=== PATIENT | male | born 1995 | race Caucasian/White ===

== ENCOUNTER 2016-09-22 11:49 | Inpatient (IN) | payer BC ==
--- NOTE | ~2016-09-22 | OP ---
Record Of Operation [facility] [address] [place]. [address] NAME: MAU NEWTON : 89 STATUS : ADM IN PAT#: [id number] AGE: 20 ADM/REG DATE : 09/22/16 MR#: [id number] REPORT SERV DATE: 09/24/16 DICTATED BY: CHELO IRBY DATE: 09/24/16 REPORT STATUS : Draft TRANSCRIBED BY: MODL DATE: 09/24/16 DATE OF PROCEDURE: 09/22/2016 PREOPERATIVE DIAGNOSIS: Left wound dehiscence. POSTOPERATIVE DIAGNOSIS: Left wound dehiscence. PROCEDURE: 1. Irrigation and debridement of the skin, subcutaneous tissue, and deep tissue of the left posterior heel (excisional debridement). 2. Wound VAC placement. ANESTHESIA: General. COMPLICATIONS: None. INDICATION FOR OPERATION: Mau Newton is a pleasant, 20-year-old male, who underwent posterior ankle arthrodesis on 08/24/2016. He suffered a wound dehiscence. This failed nonoperative treatment. Risks and benefits of surgical intervention were discussed at length with the patient and his mom. All their questions were answered and they wished to proceed. DESCRIPTION OF PROCEDURE: Mau was brought back to the operating room where general anesthesia was initiated. He was placed prone on the operative table. Care was taken to pad and protect all bony prominences and sensitive areas. Left lower extremity was prepped and draped in usual sterile fashion. The leg was elevated and a well-padded calf tourniquet was inflated. We examined the posterior heel incision. He had dehisced the distal portion of the incision overlying his lengthened Achilles tendon. We performed an excisional irrigation and debridement of the left posterior heel. This included debridement of all necrotic and devitalized tissue. We debrided back to healthy, stable, bleeding tissue. The debridement involved the Achilles tendon as well as the more anterior soft tissues. There was no hardware that was directly involved or visualized. It is a stable black eschar over the distal portion of the incision. During the debridement, deep tissue was sent for aerobic and anaerobic culture. At the conclusion of the case, we placed a wound VAC on the posterior portion of his heel. This was set to standard settings. The patient did well throughout the case. He awoke in the operating room and was transferred to recovery room in satisfactory condition. MMB/VIRI Chelo Irby MD / [id number] Record Of Operation [facility] [address] [place]. [address] NAME: MAU NEWTON : 95 STATUS : ADM IN PAT#: [id number] AGE: 20 ADM/REG DATE : 09/22/16 MR#: [id number] REPORT SERV DATE: 09/24/16 DICTATED BY: CHELO RIBY DATE: 09/24/16 REPORT STATUS : Draft TRANSCRIBED BY: VIRI DATE: 09/24/16 CC: MD Zac Adkins M.D.
--- NOTE | ~2016-09-22 | DS ---
Discharge Summary [facility] [address] [place]. [address] NAME: MAU NEWTON : 95 STATUS : DIS IN PAT#: [id number] AGE: 20 ADM/REG DATE : 09/22/16 MR#: [id number] REPORT SERV DATE: 10/06/16 DICTATED BY: CHELO IRBY DATE: 10/05/16 REPORT STATUS : Draft TRANSCRIBED BY: VIRI DATE: 10/05/16 ADMISSION DATE: 09/22/2016 DISCHARGE DATE: 09/26/2016 DISCHARGE DIAGNOSIS: Left wound dehiscence. HOSPITAL COURSE: Mau Newton is a pleasant male who suffered a wound dehiscence from the surgical incision on the posterior aspect of his heel. He underwent irrigation and debridement with placement of a wound VAC at the date of admission. Deep tissues were sent and Infectious Disease followed him throughout the course of the hospitalization. His PICC line was placed, and appropriate antibiotics were chosen. He was also followed by the medical team during the course of the hospitalization. The wound care nurses followed the patient as well. He was set up with home wound VAC with home health to change the VAC three times a week. All the patient and his family's questions were answered on the day of discharge. Followup appointments were arranged. KESHIA/VIRI Chelo Irby MD / [id number] CC: Zac Ferguson M.D.
--- NOTE | ~2016-09-22 | CN ---
Consultation Report [address] [place]. [address] NAME: MAU BERUMEN : 95 STATUS : ADM IN [facility]#: [id number] AGE: 20 ADM/REG DATE : 09/22/16 MR#: [id number] REPORT SERV DATE: 09/23/16 DICTATED BY: SERGEI SIMMONS DATE: 09/22/16 REPORT STATUS : Draft TRANSCRIBED BY: MODL DATE: 09/22/16 NEW CONSULT DATE OF CONSULTATION: REASON FOR CONSULT: Medical management. HISTORY OF PRESENT ILLNESS: This is a 20-year-old male with a history of recent left ankle surgery, status post fracture on 08/24/2016, apparently incision did not close all the way and the patient has exposed tendon and he is being admitted for surgery to do incision and clean out of ankle and placed wound VAC. The patient is an obese 20-year-old male with a history of pseudohypoparathyroidism with no other pertinent medical history. PAST MEDICAL HISTORY: 1. Morbid obesity. 2. Pseudohypoparathyroidism. PAST SURGICAL HISTORY: Surgical tubes placed in ears, tonsillectomy, adenoidectomy, removal of wisdom teeth, previous ankle surgery, right elbow surgery. SOCIAL HISTORY: Works at [employer]. No alcohol or smoking. FAMILY HISTORY: Noncontributory. HOME MEDICATIONS: 1. Aspirin 325 mg p.o. daily. 2. Caltrate 600+D tab daily. 3. Just completed a course of oral Duricef x7 days. 4. Synthroid 137 mcg p.o. daily. ALLERGIES: NO KNOWN ALLERGIES. REVIEW OF SYSTEMS: A 14-point reviewed with the patient and negative except for as previously mentioned. Currently, the patient has no shortness of breath, no chest pain, no nausea, vomiting, no abdominal pain, and good pain control. PHYSICAL EXAMINATION: VITAL SIGNS: Blood pressure 145/95, heart rate 89, respirations 18, O2 saturation 99% on room air, and temperature 99.1. GENERAL: Alert and oriented x3, no focal deficits. The patient generally cooperative. No apparent distress. Awake. NECK: No JVD. LUNGS: Clear to auscultation. Normal respiratory effort. CARDIOVASCULAR: No murmurs auscultated. Regular rhythm. Consultation Report [address] [place]. [address] NAME: MAU BERUMEN : 95 STATUS : ADM IN PAT#: [id number] AGE: 20 ADM/REG DATE : 09/22/16 MR#: [id number] REPORT SERV DATE: 09/23/16 DICTATED BY: SERGEI SIMMONS DATE: 09/22/16 REPORT STATUS : Draft TRANSCRIBED BY: VIRI DATE: 09/22/16 ABDOMEN: Soft, nontender. Active bowel sounds. EXTREMITIES: No edema. Left ankle with wrap dressing clean, dry, and intact. LABS: Sodium 141, potassium 4.5, chloride 104, CO2 of 29, BUN 12, creatinine 0.96, glucose 74. Alkaline phosphatase 85, AST 19, ALT 40, total bilirubin 0.4. CRP 21.4. ESR 54. Calcium 9.6. INR 1.1. White blood cell count 11.3, hemoglobin 15.5, hematocrit 44.4, and platelets 306. ASSESSMENT AND PLAN: 1. Nonhealing right ankle incision, status post recent surgery on 08/24/2016. The patient to have I and D and wound VAC placement per Dr. Russell and a consult for Infectious Disease has also been ordered. The patient has had no purulent drainage. There has been no concern for infection at this point except for that the incision was opened, had exposed tendon. He just completed a course of oral Keflex to prevent infection. 2. Pseudohypoparathyroidism. Calcium level within normal limits. We will go ahead and add a TSH to the blood that has already been drawn and will also continue his home calcium and Synthroid. Thank you for consult. We will follow. TDR/ALIZAL Sergei Simmons APN / [id number] CC: MD Marty Adkins John E
--- NOTE | ~2016-09-22 | CN ---
Consultation Report [facility] [address] [place]. [address] NAME: MAU BERUMEN : 95 STATUS : ADM IN [facility]#: [id number] AGE: 20 ADM/REG DATE : 09/22/16 MR#: [id number] REPORT SERV DATE: 09/23/16 DICTATED BY: LUIS A JOSHI DATE: 09/22/16 REPORT STATUS : Draft TRANSCRIBED BY: MODL DATE: 09/22/16 INFECTIOUS DISEASE CONSULT DATE OF CONSULTATION: REASON FOR CONSULT: Left posterior ankle wound. HISTORY OF PRESENT ILLNESS: A 20-year-old white male who suffered a fracture several years ago, requiring an ORIF. There were two bones involved at that time, but it was not an open fracture. Apparently, the fusion took place in such a way that he could not walk properly, he was stepping on his toes. Dr. Fermin Russell redo the ORIF on 08/24. He removed some of the old hardware and put some new hardware. However, because of prior surgeries, it was hard to close the surgical site. At two weeks followup when the stitches were removed, the surgical site opened. It was packed with Iodosorb and the patient was prescribed Duricef 500 mg p.o. q.12 hours for one week. He had some drainage from the surgical site, it was blood initially, but never had an odor or pus. The patient, however, developed a cellulitis around this. He had no fever, no chills. No body aches. No shortness of breath. No nausea or vomiting. No urinary symptoms. He reports no other skin lesions and no boils. Today, he was brought in and had a surgical debridement. There is no bone exposure, but the tendon was obviously exposed. A Vac-Jalen was put in. A tissue Gram stain showed few white blood cells, rare intracellular gram-positive cocci. PAST MEDICAL HISTORY: Pseudohyperparathyroidism, followed by the foundry technician in [place]. He takes Synthroid, calcium, vitamin D. History of tonsillectomy. At the age of 7, he had elbow surgeries for some calcium concretions removal. ALLERGIES: NONE. 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 Does not smoke or drink alcohol, or use drugs. He has a pet dog that did not play with his foot. FAMILY HISTORY: None. MEDICATIONS ON ADMISSION: Aspirin, calcium, vitamin D, Synthroid, and cefadroxil that he stopped yesterday. ALLERGIES: NONE I MENTIONED. PHYSICAL EXAMINATION: GENERAL: He is alert, awake, and not in distress. HEENT: No oral thrush. LUNGS: Clear to auscultation. No wheezes, rhonchi, or rales. HEART: Regular rhythm. Consultation Report [address] [place]. [address] NAME: MAU BERUMEN : 95 STATUS : ADM IN PAT#: [id number] AGE: 20 ADM/REG DATE : 09/22/16 MR#: [id number] REPORT SERV DATE: 09/23/16 DICTATED BY: LUIS A JOSHI DATE: 09/22/16 REPORT STATUS : Draft TRANSCRIBED BY: VIRI DATE: 09/22/16 ABDOMEN: Soft and nontender to palpation. EXTREMITIES: Hands and right foot without lesions. Left foot with a Vac-Pac. No cellulitis. The foot does not look swollen. LABORATORY WORK: Today, BUN 12, creatinine 0.9, bilirubin 0.4, TSH 12, and CRP 21. WBC 11, hemoglobin 15, and platelets 306. Sedimentation rate 57. ASSESSMENT AND PLAN: 1. Left posterior ankle postoperative open wound with exposed Achilles tendon. 2. Remote ankle fracture with failed open reduction and internal fixation, requiring a redo open reduction and internal fixation on 08/24. He had surgical debridement today and a Vac-Jalen placement. He was on Duricef preoperatively. There are no systemic signs of infection. No wound purulence. No cellulitis, but this is a large and deep wound. He was on Ancef postop. I am going to add aztreonam for gram-negative mac coverage. His TSH seems to be elevated. I discussed with the patient and mother or license registration examiner. DIGNA/VIRI Luis A Joshi M.D. / [id number] CC: MD Zac Adkins M.D.
--- NOTE | ~2016-09-22 | HP ---
History And Physical [facility] [address] [place]. [address] NAME: MAU NEWTON : 95 STATUS : DIS IN PAT#: [id number] AGE: 20 ADM/REG DATE : 09/22/16 MR#: [id number] REPORT SERV DATE: 10/05/16 DICTATED BY: CHELO IRBY DATE: 10/05/16 REPORT STATUS : Draft TRANSCRIBED BY: MODL DATE: 10/05/16 DATE OF ADMISSION: 09/22/2016 HISTORY OF PRESENT ILLNESS: Mau Newton is a pleasant 20-year-old male who underwent recent posterior ankle fusion for severe DJD and contracture of the ankle related to a sledding accident approximately three years ago. The patient developed dehiscence of his surgical wound, was seen in my office. Risks and benefits of irrigation and debridement of this wound with placement of wound VAC were discussed with the patient. PAST MEDICAL HISTORY: 1. Morbid obesity. 2. Pseudohypoparathyroidism. 3. Left intra-articular fracture of the tibia and fibula. 4. Left severe ankle contracture. PAST SURGICAL HISTORY: Surgical tubes placed in the ears, tonsillectomy, adenoidectomy, removal of wisdom teeth, previous ankle surgery, and right elbow surgery. SOCIAL HISTORY: Works at [employer]. Denies alcohol or smoking. FAMILY HISTORY: Noncontributory. HOME MEDICATIONS: Aspirin, Caltrate, oral Duricef, and Synthroid. ALLERGIES: NO KNOWN DRUG ALLERGIES. REVIEW OF SYSTEMS: The patient was in usual state of health at the time of the evaluation. Denied fevers, chills, nausea, vomiting, abdominal pain, shortness of breath, or chest pain. PHYSICAL EXAMINATION: VITAL SIGNS: His blood pressure is 145/95, heart rate 89, respirations 18, O2 saturation 99% on room air, and temperature is 99.1. GENERAL: He is alert and oriented x3. In no distress. He is pleasant and cooperative. EYES: Pupils are equal and reactive. CHEST: Nonlabored breathing. HEART: Regular rate. ABDOMEN: Obese. EXTREMITIES: Bilateral upper extremities, nontender to gentle range of motion. Right lower extremity, nontender with gentle range of motion. Left lower extremity, a posterior heel and ankle surgical wound that has dehisced. Exposed Achilles tendon is seen. There is no purulent drainage. There is abundant granulation tissue. IMPRESSION: Left posterior ankle wound dehiscence. PLAN: Lengthy discussion with Mau and his mom regarding his diagnosis and treatment History And Physical [address] [facility] [place] [address] NAME: MAU NEWTON : 95 STATUS : DIS IN PAT#: [id number] AGE: 20 ADM/REG DATE : 09/22/16 MR#: [id number] REPORT SERV DATE: 10/05/16 DICTATED BY: CHELO IRBY DATE: 10/05/16 REPORT STATUS : Draft TRANSCRIBED BY: VIRI DATE: 10/05/16 options. I recommended open irrigation and debridement in the operating room with placement of a wound VAC. All of their questions were answered, and they wished to proceed. We will ask the medical team to keep an eye on him. We also asked Infectious Disease doctors to follow him as well as I will take deep tissue cultures during surgery. All of Mau's questions were answered, and he wished to proceed. KESHIA/VIRI Chelo Irby MD / [id number] CC: MD Zac Adkins M.D.
[2016-09-22 13:47] LABS: BASOPHILS 0.3 %; BASOPHILS ABSOLUTE 0.03 10/3/uL (0.0-0.16); EOSINOPHILS 3.9 %; EOSINOPHILS ABSOLUTE 0.44 10/3/uL (0.0-0.53); HEMATOCRIT 44.4 % (40.0-51.0); HEMOGLOBIN 15.5 g/dL (13.6-17.8); IMMATURE GRANULOCYTES 0.3 %; IMMATURE GRANULOCYTES ABSOLUTE 0.03 10/3/uL (0.0-0.11); LYMPHOCYTES 24.6 %; LYMPHOCYTES ABSOLUTE 2.78 10/3/uL (0.67-4.30); MEAN CORPUS HGB CONC 34.9 g/dL (32.0-36.0); MEAN CORPUSCULAR HEMOGLOB 30.1 pg (26.0-34.0); MEAN CORPUSCULAR VOLUME 86.2 fL (80-100); MEAN PLATELET VOLUME 9.1 fL (9.2-13.0); MONOCYTES 6.3 %; MONOCYTES ABSOLUTE 0.71 10/3/uL (0.21-1.20); NEUTROPHILS 64.6 %; NEUTROPHILS ABSOLUTE 7.29 10/3/uL (2.02-8.40); PLATELET COUNT 306 10/3/uL (150-400); RBC DISTRIBUTION WIDTH 12.6 % (12.0-16.0); RED CELL COUNT 5.15 10/6/uL (4.7-6.1); WHITE BLOOD CELLS 11.3 10/3/uL (4.5-10.5)
[2016-09-22 13:48] LABS: MANUAL DIFF NO %
[2016-09-22] MEDS ORDERED: CALTRA600D PO (13:50)
[2016-09-22] MEDS ORDERED: SYN.15 PO (13:50)
[2016-09-22] MEDS ORDERED: DURICEF PO (13:51)
[2016-09-22] MEDS ORDERED: ASAEC PO (13:51)
[2016-09-22 13:53] LABS: INTERNATIONAL NORMAL RATI 1.1 UNITS (-); PARTIAL THROMBO TIME 35.4 SEC (22.5-37.2); PROTIME (NOT ORD) 14.4 SEC (12.0-14.5)
[2016-09-22 14:03] LABS: A/G RATIO 0.8 (0.7-1.9); ALBUMIN 3.7 G/DL (3.5-5.0); ALKALINE PHOSPHATASE 85 U/L (45-117); BUN (BLOOD UREA NITROGEN) 12 MG/DL (6-23); C-REACTIVE PROTEIN 21.4 MG/L (<8.0); CALCIUM, SERUM 9.6 MG/DL (8.5-10.4); CHLORIDE, SERUM 104 MMOL/L (96-112); CO2 (CARBON DIOXIDE) 29 MMOL/L (24-34); CREATININE 0.96 MG/DL (0.70-1.30); GFR AFRICAN AMERICAN 131 ML/MIN (>=60); GFR NON AFRICAN AMERICAN 113 ML/MIN (>=60); GLOBULIN 4.8 G/DL (2.5-4.1); GLUCOSE, SERUM 74 MG/DL (60-99); POTASSIUM, SERUM 4.5 MMOL/L (3.5-5.3); SGOT(AST) 19 U/L (5-40); SGPT(ALT) 40 U/L (5-65); SODIUM, SERUM 141 MMOL/L (135-148); TOTAL BILIRUBIN 0.4 MG/DL (0-1.2); TOTAL PROTEIN 8.5 G/DL (6.0-8.5)
[2016-09-22 14:51] LABS: SED RATE 57 MM/HR (0-15)
[2016-09-24 06:57] LABS: BASOPHILS 0.2 %; BASOPHILS ABSOLUTE 0.02 10/3/uL (0.0-0.16); EOSINOPHILS 1.2 %; EOSINOPHILS ABSOLUTE 0.12 10/3/uL (0.0-0.53); HEMOGLOBIN 13.4 g/dL (13.6-17.8); IMMATURE GRANULOCYTES 0.2 %; IMMATURE GRANULOCYTES ABSOLUTE 0.02 10/3/uL (0.0-0.11); LYMPHOCYTES 29.6 %; LYMPHOCYTES ABSOLUTE 3.06 10/3/uL (0.67-4.30); MEAN CORPUS HGB CONC 33.8 g/dL (32.0-36.0); MEAN CORPUSCULAR HEMOGLOB 29.6 pg (26.0-34.0); MEAN CORPUSCULAR VOLUME 87.6 fL (80-100); MEAN PLATELET VOLUME 9.1 fL (9.2-13.0); MONOCYTES ABSOLUTE 0.72 10/3/uL (0.21-1.20); NEUTROPHILS 61.8 %; NEUTROPHILS ABSOLUTE 6.41 10/3/uL (2.02-8.40); PLATELET COUNT 272 10/3/uL (150-400); RBC DISTRIBUTION WIDTH 12.5 % (12.0-16.0); RED CELL COUNT 4.53 10/6/uL (4.7-6.1); WHITE BLOOD CELLS 10.4 10/3/uL (4.5-10.5)
[2016-09-24 07:04] LABS: HEMATOCRIT 39.7 % (40.0-51.0); MANUAL DIFF NO %
[2016-09-24 07:17] LABS: BUN (BLOOD UREA NITROGEN) 15 MG/DL (6-23); CALCIUM, SERUM 8.5 MG/DL (8.5-10.4); CHLORIDE, SERUM 103 MMOL/L (96-112); CO2 (CARBON DIOXIDE) 30 MMOL/L (24-34); CREATININE 0.94 MG/DL (0.70-1.30); GFR AFRICAN AMERICAN 135 ML/MIN (>=60); GFR NON AFRICAN AMERICAN 116 ML/MIN (>=60); GLUCOSE, SERUM 87 MG/DL (60-99); SODIUM, SERUM 140 MMOL/L (135-148)
[2016-09-26] MEDS ORDERED: CEFAZ1 IV (14:09)
[2016-09-26] MEDS ORDERED: CEFADROXIL1 GM PO (16:24)
== END 2016-09-26 17:03 | disposition home health service (06) | DRG 908 ==
LOC: 1SO 11:49
PROVIDERS: Orthopaedic Surgery Foot and Ankle Surgery
PROC: 0LBT0ZZ Excision of Left Ankle Tendon, Open Approach (ICD-10-PCS; principal; 2016-09-22 16:45)
PROC: 02HV33Z Insertion of Infusion Device into Superior Vena Cava, Percutaneous Approach (ICD-10-PCS; 2016-09-26)
PROC: 4A02X4A Measurement of Cardiac Electrical Activity, Guidance, External Approach (ICD-10-PCS; 2016-09-26)
DX: T81.32XA Disruption of internal operation (surgical) wound, not elsewhere classified, initial encounter (principal); Z68.41 Body mass index [BMI] 40.0-44.9, adult; E66.01 Morbid (severe) obesity due to excess calories; E20.1 Pseudohypoparathyroidism; Y83.8 Other surgical procedures as the cause of abnormal reaction of the patient, or of later complication, without mention of misadventure at the time of the procedure; Z79.82 Long term (current) use of aspirin; Z79.899 Other long term (current) drug therapy
CPT/HCPCS: 36569; 80048; 80053; 84443; 85025; 85610; 85652; 85730; 86140; 87070; 87075; 87077; 87186; 87205; 93005; A9270-GY; C1751; J0330; J0690; J2250; J2405; J2710; J3010